=== PATIENT | male | born 1990 | race Caucasian/White ===

== ENCOUNTER 2017-05-12 18:25 | Emergency (ER) | payer SELFPAY ==
--- NOTE | ~2017-05-12 | ER ---
PATIENT'S NAME: WILI FRANCOIS [facility] AGE: 26 Y [address] ROOM: [place] [address] LOCATION: ED ADMIT DATE: 05/12/2017 ER/Outpatient Report DISCHARGE DATE: 05/12/2017 FAMILY PHYSICIAN: PHYSICIAN, NO ATTENDING PHYSICIAN: Syl Krishna Time of Arrival: 1829 hours. Time of Exam: 1840 hours. CHIEF COMPLAINT: Sore to the right groin area. HISTORY OF PRESENT ILLNESS: The patient states approximately 3-4 weeks ago he was swimming at [place], after that he noted a sore on the right inner upper thigh area, that has gradually gotten bigger, last week it did start to drain and the size of it had decreased, however, it continues to be quite painful and reddened in the area. Denies having any other sores anywhere else. Unsure exactly what kind of injury occurred. ALLERGIES: NO KNOWN ALLERGIES. CURRENT MEDICATIONS: None. PAST MEDICAL HISTORY: Benign. PAST SURGERIES: Negative. SOCIAL HISTORY: Denies use of tobacco. Does smoke marijuana on an occasional basis. Drinks alcohol on an occasional basis. REVIEW OF SYSTEMS: Negative other than those mentioned in the HPI. PHYSICAL EXAMINATION: VITAL SIGNS: He weighed 79.6 kg. Blood pressure is 135/72, pulse is 76, respirations 16, temperature of 98.2 temporal scanner, and O2 saturation was 97% on room air. GENERAL: He is awake, alert, and oriented x4. SKIN: Berkey, warm, and dry. PATIENT'S NAME: WILI FRANCOIS [facility] AGE: 26 Y [address] ROOM: [place] [address] LOCATION: [facility] ADMIT DATE: 05/12/2017 ER/Outpatient Report DISCHARGE DATE: 05/12/2017 FAMILY PHYSICIAN: PHYSICIAN, NO ATTENDING PHYSICIAN: Syl Krishna RESPIRATIONS: Even and nonlabored. SKIN: The patient has a reddened area to the right inner upper thigh growing area, that is reddened with a hard center, does have some drainage. Culture was obtained. It is tender to touch. IMPRESSION: Cellulitis right inner upper thigh. PLAN: Home, rest. Wash the area at least twice a day with soap and water. Prescription was written for Bactrim DS and Lucan. He can take Tylenol or ibuprofen for lesser pain. If symptoms do not improve in the next 2 to 3 days, he is to follow up with his primary provider. He verbalized understanding. SHELLEY CONN APRN FOR MD [facility]RANADOS/trino /[id number] d: 05/13/17 0243 t: 05/15/17 1611, OUTPATIENT REPORT
== END 2017-05-12 19:01 | disposition disaster alternative care site (69) ==
LOC: GMED 18:25
DX: L03.115 Cellulitis of right lower limb (principal)